=== PATIENT | female | born 1955 | race Caucasian/White ===

== ENCOUNTER 2020-07-22 20:50 | Emergency (ER) | payer BC, OTHER ==
[~2020-07-22] VITALS: Ht 157.5 cm; Wt 68.0 kg
[2020-07-22] MEDS ORDERED: IV NORMAL SALINE 1000 ML BAG IV ONE (21:00)
[2020-07-22] MEDS ORDERED: VENL-192 PO (21:18)
[2020-07-22] MEDS ORDERED: VENL37.510 PO (21:18)
[2020-07-22] MEDS ORDERED: ATOR20TA PO (21:18)
[2020-07-22] MEDS ORDERED: MORPHINE SULFATE 4 MG/1 ML DISP.SYRIN IV ONE (21:30)
[2020-07-22] MEDS ORDERED: FAMOTIDINE. 20 MG/2 ML VIAL IV ONE ×2 (21:30→21:49)
[2020-07-22 21:33] LABS: BASOPHILS # (AUTO) 0.1 K/uL (0.0-8.0); BASOPHILS % (AUTO) 1.2 % (0.0-2.0); EOSINOPHILS # (AUTO) 0.2 K/uL (0.0-0.7); EOSINOPHILS % (AUTO) 3.2 % (0.0-7.0); HEMOGLOBIN 14.5 g/dL (10.9-14.3); LYMPHOCYTES # (AUTO) 2.9 K/uL (20.0-40.0); LYMPHOCYTES % (AUTO) 40.3 % (20.5-51.5); MEAN CORPUSCULAR HEMOGLOBIN 29.4 uug (24.7-32.8); MEAN CORPUSCULAR HGB CONC 35 g/dL (32.3-35.6); MEAN CORPUSCULAR VOLUME 85.4 fL (75.5-95.3); MONOCYTES # (AUTO) 0.6 K/uL (2.0-10.0); MONOCYTES % (AUTO) 7.9 % (0.0-11.0); NEUTROPHILS # (AUTO) 3.5 K/uL (1.8-8.9); NEUTROPHILS % (AUTO) 47.4 % (38.5-71.5); PLATELET COUNT (AUTO) 276 K/uL (179-408); RED BLOOD CELL COUNT(AUTO) 4.92 MIL/uL (3.63-4.92); WHITE BLOOD COUNT (AUTO) 7.3 K/uL (3.8-11.8)
[2020-07-22 21:40] LABS: CREATININE 1.2 mg/dL (0.6-1.3); POTASSIUM 3.6 mmol/L (3.5-5.1)
[2020-07-22 21:46] LABS: BILIRUBIN,DIRECT 0.1 mg/dL (0.0-0.2); BILIRUBIN,TOTAL 0.7 mg/dL (0.2-1.0); TOTAL PROTEIN, SERUM 7.4 g/dL (6.4-8.2)
[2020-07-22] MEDS ORDERED: MORPHINE SULFATE 4 MG/1 ML DISP.SYRIN ONE (21:49)
--- NOTE | 2020-07-22 23:00 | NUR ---
Patient is resting in bed, no acute distress is noted.
[2020-07-22 23:44] LABS: *BILIRUBIN,URIN NEGATIVE (NEGATIVE); *CLARITY,URINE CLEAR (CLEAR); *COLOR,URINE YELLOW (YELLOW); *KETONES,URINE NEGATIVE (NEGATIVE); *UROBILINOGEN,URINE 0.2 E.U./dl (NORMAL); LEUKOCYTE ESTERASE ,URINE NEGATIVE (NEGATIVE); NITRITE, URINE NEGATIVE (NEGATIVE); UGLUCOSE NEGATIVE (NEGATIVE)
[2020-07-22 23:50] LABS: *BLOOD, URINE TRACE (NEGATIVE)
[2020-07-23 00:02] LABS: BACTERIA,URINE NONE SEEN /HPF (NONE SEEN); RBC,URINE 0-3 /HPF (0-3); SQUAMOUS EPITHELIAL CELL,UR FEW /HPF (NONE SEEN); WBC,URINE 0-3 /HPF (0-3)
[2020-07-23 00:05] VITALS: BP 112/63
--- NOTE | 2020-07-23 00:05 | NUR ---
Patient discharged to home in stable condition. Written and verbal after care instructions given. Patient verbalizes understanding of instructions. Stressed follow up or return to ER for worsening s/s. Patient ambulates without difficulty, Rx given, left with all personal belongings, advised to not drive.
== END 2020-07-23 00:05 | disposition home or self-care (01) ==
LOC: ER 20:52
DX: R11.2 Nausea with vomiting, unspecified (principal)
CPT/HCPCS: 36415; 80048; 80076; 81001; 83605; 83690; 85025; 96361; 96374; 96375; 99284; J2270; J3490; A4663; J7030

== ENCOUNTER 2021-04-28 03:10 | Emergency (ER) | payer BC ==
[~2021-04-28] VITALS: Ht 157.5 cm; Wt 68.0 kg
[~2021-04-28 03:10] MED LIST: ATOR20TA PO; VENL-192 PO; VENL37.510 PO
--- NOTE | 2021-04-28 03:20 | NUR ---
PT BIB [facility] 82 FROM HOME FOR INTERMITTENT N/V SINCE YESTERDAY 4AM. PT A/O X4, NO SOB OR LABORED BREATHING. DENIES CP/PRESSURE. CLEAR SPEECH, COMPLETE SENTENCES.
--- NOTE | 2021-04-28 03:26 | NUR ---
DR. TOBAR AT BEDSIDE, MSE IN PROGRESS.
--- NOTE | 2021-04-28 03:44 | NUR ---
LAB AT BEDSIDE.
[2021-04-28] MEDS ORDERED: IV NS 1000 ML 1,000 ML IV ONE (03:45)
[2021-04-28] MEDS ORDERED: MORPHINE SULFATE 4 MG/1 ML DISP.SYRIN IV ONE (03:45)
[2021-04-28] MEDS ORDERED: FAMOTIDINE. 20 MG/2 ML VIAL IV ONE ×2 (03:45→03:54)
[2021-04-28] MEDS ORDERED: MORPHINE SULFATE 4 MG/1 ML DISP.SYRIN ONE (03:54)
[2021-04-28 03:55] LABS: MEAN CORPUSCULAR VOLUME 85.3 fL (75.5-95.3); PLATELET COUNT (AUTO) 279 K/uL (179-408)
[2021-04-28 04:26] LABS: BILIRUBIN,DIRECT 0.2 mg/dL (0.0-0.2); BILIRUBIN,TOTAL 0.7 mg/dL (0.2-1.0); CREATININE 1.2 mg/dL (0.6-1.3); POTASSIUM 3.8 mmol/L (3.5-5.1); TOTAL PROTEIN, SERUM 8.1 g/dL (6.4-8.2)
--- NOTE | 2021-04-28 04:57 | NUR ---
AT BEDSIDE. PT RESTING COMFORTABLY.
--- NOTE | 2021-04-28 05:43 | NUR ---
PT TAKEN DOWN FOR CT.
[2021-04-28] MEDS ORDERED: DICY20TA11 PO (07:13)
[2021-04-28 07:27] VITALS: BP 122/72
--- NOTE | 2021-04-28 07:27 | NUR ---
Patient discharged to home in stable condition. Written and verbal after care instructions given. Patient verbalizes understanding of instructions. Stressed follow up or return to ER for worsening s/s.
== END 2021-04-28 07:27 | disposition home or self-care (01) ==
LOC: ER 03:15
DX: K80.20 Calculus of gallbladder without cholecystitis without obstruction (principal); D72.829 Elevated white blood cell count, unspecified; E78.5 Hyperlipidemia, unspecified; Z79.899 Other long term (current) drug therapy; R10.13 Epigastric pain
CPT/HCPCS: 36415; 74176; 80048; 80076; 83605; 83690; 84484; 85025; 93005; 96361; 96374; 96375; 99285; J2270; J3490; 70030-TC; A4663